=== PATIENT | male | born 2000 | race Caucasian/White ===

== ENCOUNTER 2020-01-23 16:01 | Emergency (ER) | payer SELFPAY ==
[2020-01-23 16:12] VITALS: BP 136/73; PULSE 83; RESP 18; TEMP 36.9; O2SAT 99; BMI 23.7
--- NOTE | 2020-01-23 16:22 | DI.RAD.S_ITS ---
PROCEDURE: XR CHEST 1V INDICATIONS: SHORTNESS OF BREATH. TECHNIQUE: One view of the chest was acquired. COMPARISON: None. FINDINGS: Surgical changes and devices: None. Lungs and pleura: Lungs are clear. No pleural effusions or pneumothorax. Mediastinum: Mediastinal contours appear normal. Heart size is normal. Bones and chest wall: No suspicious bony lesions. Overlying soft tissues appear unremarkable. IMPRESSION: No evidence acute pulmonary process. Dictated by: Nestor Darnell M.D. on 01/23/2020 at 17:15 Approved by: Nestor Darnell M.D. on 01/23/2020 at 17:15
--- NOTE | 2020-01-23 16:27 | ED_ITS ---
HPI - General Adult General Chief complaint: Upper Respiratory Symptoms Stated complaint: Coughing up blood, mucus, chest pain, SOB Time Seen by Provider: 01/23/20 16:21 Source: patient Mode of arrival: Ambulatory Limitations: no limitations History of Present Illness HPI narrative: 20-year-old male here for evaluation of wheezing and coughing and blood-streaked sputum. Patient states this has been going off and on for some time now. Do states that it mostly occurs when he goes to his parent's house for they have a cat. He is unsure if he is allergic to the cat. He states that he was diagnosed with pneumonia as a child but not currently on any treatment for this. He was using his girlfriend's albuterol inhaler. No fevers. No chest pain. Related Data Previous Rx's Medication Instructions Recorded albuterol sulfate 2 puff INHALATION Q4-6H PRN #18 01/23/20 gram Allergies Allergy/AdvReac Type Severity Reaction Status Date / Time No Known Drug Allergies Allergy Verified 01/23/20 16:12 Review of Systems Constitutional Constitutional: Denies fever(s) and Denies headache(s) ENT Ears, Nose, Mouth, and Throat: Denies headache(s) Cardiovascular Cardiovascular: Denies chest pain Respiratory Respiratory: Reports cough Comments: Blood tinged sputum with cough Gastrointestinal Gastrointestinal: Denies abdominal pain, Denies nausea and Denies vomiting Integumentary/Breasts Skin/Breast: Denies rash Neurologic Neurologic: Denies headache(s) Hematologic/Lymphatic Hematologic/Lymphatic: Denies easy bleeding and Denies easy bruising Patient History Medical History Asthma (Acute) Social History Smoking Status: Never smoker Smoking Status: Never smoker Substance Use Type: does not use Exam Initial Vital Signs Initial Vital Signs: Vital Signs Temperature 98.5 F 01/23/20 16:12 Pulse Rate 83 01/23/20 16:12 Respiratory Rate 18 01/23/20 16:12 Blood Pressure 136/73 01/23/20 16:12 Pulse Oximetry 99 01/23/20 16:12 Const General: cooperative, comfortable and well developed Limitations: mental status not altered HENIN Head: normal to inspection and normocephalic Resp Effort & Inspection: normal respiratory effort and not tachypneic Auscultation: wheezes (Right lower) Cardio Rate: regular rate Rhythm: regular rhythm Skin Lesions: no lesions Rashes: no rashes Neuro General: alert, awake and oriented x3 Cognition: normal cognition Speech: speech normal Extrem General: normal to inspection and capillary refill normal Psych Appearance: grossly normal and well kempt Course Orders Ordered: ED Orders 01/23/20 16:22 XR chest 1V Stat Discontinued Medications Albuterol (Ventolin) 2.5 mg INH NOW ONE Stop: 01/23/20 16:34 Last Admin: 01/23/20 16:53 Dose: 2.5 mg Documented by: DEAN Vital Signs Vital signs: Vital Signs - 8 hr 01/23/20 16:12 01/23/20 16:54 Temperature 98.5 F Pulse Rate 83 93 H Respiratory Rate 18 16 Blood Pressure 136/73 Pulse Oximetry 99 99 Medical Decision Making Imaging Data Chest x-ray: Radiologist's Impression: [address] [address] XRay Report Signed Patient: Robbin Matthews TMR#: [id number] : 2000Acct:[id number] Age/Sex: 20 / MDate of Service: 01/23/20 Loc: ED Accession Number: [id number] Procedure: XR chest 1V Ordering Provider: Paul Barr D.O. PROCEDURE: XR CHEST 1V INDICATIONS: SHORTNESS OF BREATH. TECHNIQUE: One view of the chest was acquired. COMPARISON: None. FINDINGS: Surgical changes and devices: None. Lungs and pleura: Lungs are clear. No pleural effusions or pneumothorax. Mediastinum: Mediastinal contours appear normal. Heart size is normal. Bones and chest wall: No suspicious bony lesions. Overlying soft tissues appear unremarkable. IMPRESSION: No evidence acute pulmonary process. Dictated by: Nestor Darnell M.D. on 01/23/2020 at 17:15 Approved by: Nestor Darnell M.D. on 01/23/2020 at 17:15 [facility] Narrative Medical decision making narrative: Afebrile, did have some right lower lobe wheezing which resolved with an albuterol nebulizer. Chest x-ray is unremarkable. No need for antibiotics. I do suspect the blood-tinged sputum was secondary to the coughing that he is having and irritation related to this. We did discuss the use of antihistamines to include Claritin or Olamide or Zyrtec that he can buy [id number]. He was given return precautions and follow-up instructions. He was also given phone number that he can contact for a primary provider. He expressed understanding and agreement plan. Discharge Plan Departure Patient Disposition: Home Clinical Impression: Wheezing Discharge Date/Time: 01/23/20 17:37 Instructions: DI for Reactive Airway Disease-Adult Activity Restrictions/Additional Instructions: I do recommend that you use the albuterol inhaler as directed. Also recommend that you try to use an [id number] antihistamine such as Claritin or Olamide or Zyrtec like we discussed. Contact the number your provided to establish a primary provider. Return to emergency department for any new or worsening symptoms Prescriptions: New albuterol sulfate 90 mcg/actuation HFA aerosol inhaler 2 puff INHALATION Q4-6H PRN (Reason: shortness of breath or wheezing) Qty: 18 RF: 0 Stand Alone Forms: Work Release Note
[2020-01-23] MEDS: ALBUTEROL 2.5 MG/3 ML NEB (ADULT) INH (16:53)
[2020-01-23 16:54] VITALS: PULSE 93; RESP 16; O2SAT 99
== END 2020-01-23 17:37 | disposition home or self-care (01) ==
PROVIDERS: Emergency Provider Emergency Medicine
DX: R06.2 Wheezing (principal); R05 Cough
CPT/HCPCS: 71045; 94640; 99283; J7613

== ENCOUNTER 2020-01-30 18:06 | Emergency (ER) | payer SELFPAY ==
[2020-01-30 18:10] VITALS: BP 121/72; PULSE 71; RESP 18; TEMP 37.1; O2SAT 100
--- NOTE | 2020-01-30 19:52 | ED_ITS ---
HPI - Abdominal Pain <NAV HiP - Last Filed: 01/30/20 21:14> General Chief Complaint: Abdominal Pain Stated Complaint: THROWING UP STOMACH PAIN ON FIRE Time Seen by Provider: 01/30/20 19:22 Source: patient Mode of arrival: Ambulatory Limitations: no limitations History of Present Illness HPI narrative: This is a 20-year-old male who presents to ED with chief complain of acid reflux feeling. Patient reports he has occasional GERD symptoms and reports nonradiating burning epigastric discomfort. Patient states he had coffee and vitamin on empty stomach this morning. He also had nausea and vomited about 8-10 times today. Patient denies blood in his emesis or diarrhea or blood in his stool. Patient describes his discomfort as stomach on fire. Patient has not eaten today and feels hungry. Patient denies ETOH intakes or routine medication uses besides [employer]. Last emesis around 1700. Related Data Previous Rx's Medication Instructions Recorded albuterol sulfate 2 puff INHALATION Q4-6H PRN #18 01/23/20 gram ondansetron 4 mg PO BID-TID PRN #10 tab 01/30/20 pantoprazole [Protonix] 20 mg PO DAILY #14 tab 01/30/20 Allergies Allergy/AdvReac Type Severity Reaction Status Date / Time No Known Drug Allergies Allergy Verified 01/23/20 16:12 Review of Systems <Artur SteveNAV GilP - Last Filed: 01/30/20 21:14> Review of Systems Narrative: General: Denies fever, chills, fatigue, malaise, sweats. HEENT: Denies sinus pain, ear pain, sore throat, difficulty swallowing, dizziness. Respiratory: Denies dyspnea, cough, wheezing, hemoptysis, sputum. Cardiovascular: Denies chest pain, palpitations, orthopnea, edema. Gastrointestinal: See HPI : Denies dysuria, frequency, incontinence, hematuria, urinary retention. Musculoskeletal: Denies weakness, joint pain or bony pain. Skin: Denies rash, skin lesions, or other. Neurologic: Denies weakness, headache, numbness, change in speech, confusion, seizures, incoordination. Psychiatric: No concerning psychosocial issues. 12-point review of systems is negative except for those stated above. Patient History <NAV HiP - Last Filed: 01/30/20 21:14> Social History (Updated 01/30/20 @ 19:56 by LAURA Hi) Smoking Status: Never smoker Smokeless tobacco user: chewing tobacco Smoking Status: Never smoker Substance Use Type: does not use Exam <LAURA Hi - Last Filed: 01/30/20 21:14> Narrative Exam Narrative: General appearance: well developed, well nourished, in no acute distress. Head: normocephalic, atraumatic, no scalp lesions, non-tender. ENT: Hearing grossly intact. Nose without bleeding, purulent discharge. Facial sinuses nontender to palpate. Mucous membrane moist, no mucosal lesion. Throat without erythema, tonsillar hypertrophy or exudate. Uvula in midline, airway patent. Neck/Thyroid: neck supple, full range of motion, no visible masses or meningeal signs. No JVD, non-tender without lymphadenopathy. Skin: no suspicious rashes, lesions over visible areas. Warm and dry and a ppropriate color for ethnicity. Heart: no clubbing, no cyanosis, no edema. S1 and S2 normal. RRR w/o murmurs, clicks, or bruits. Lungs: Breathing even and unlabored. No stridor. No accessory muscles used. Able to speak in full sentences. Chest: normal shape and expansion. Abdomen: non-obese, non-distended, mild discomfort in epigastric region without rebound tenderness in right lower quadrant or left lower quadrant. Negative Young's sign. Neurologic: alert and oriented. Cognitive exam, PAPIER MACHE' MOLDER and PNS grossly intact on informal exam. Psych: good eye contact, normal affect. Initial Vital Signs Initial Vital Signs: Vital Signs Temperature 98.8 F 01/30/20 18:10 Pulse Rate 71 01/30/20 18:10 Respiratory Rate 18 01/30/20 18:10 Blood Pressure 121/72 01/30/20 18:10 Pulse Oximetry 100 01/30/20 18:10 <Chandni Galvan DO - Last Filed: 01/31/20 01:52> Initial Vital Signs Initial Vital Signs: Vital Signs Temperature 98.8 F 01/30/20 18:10 Pulse Rate 71 01/30/20 18:10 Respiratory Rate 18 01/30/20 18:10 Blood Pressure 121/72 01/30/20 18:10 Pulse Oximetry 100 01/30/20 18:10 Scores <Artur LbNAV griffinP - Last Filed: 01/30/20 21:14> GCS Paul coma scale eye opening: Spontaneous [place] coma scale verbal response: Orientated Paul coma scale motor response: Obey commands Paul coma scale total score: 15 Course <[facility] JustinoLAURA - Last Filed: 01/30/20 21:14> Orders Ordered: Discontinued Medications Al Hydrox/Mg Hydrox/Simethicone 20 ml/ Lidocaine HCl 15 ml 0 ml PO NOW ONE Stop: 01/30/20 19:42 Last Admin: 01/30/20 20:04 Dose: 30 ml Documented by: MARIE Ondansetron HCl (Zofran Odt) 4 mg SL NOW ONE Stop: 01/30/20 19:42 Last Admin: 01/30/20 20:04 Dose: 4 mg Documented by: MARIE Pantoprazole Sodium (Protonix) 20 mg PO NOW ONE Stop: 01/30/20 19:42 Last Admin: 01/30/20 20:04 Dose: 20 mg Documented by: MARIE Vital Signs Vital signs: Vital Signs - 8 hr 01/30/20 18:10 01/30/20 20:12 Temperature 98.8 F Pulse Rate 71 73 Respiratory Rate 18 18 Blood Pressure 121/72 Blood Pressure [Left Arm] 115/72 Pulse Oximetry 100 100 <Chandni Galvan DO - Last Filed: 01/31/20 01:52> Orders Ordered: Discontinued Medications Al Hydrox/Mg Hydrox/Simethicone 20 ml/ Lidocaine HCl 15 ml 0 ml PO NOW ONE Stop: 01/30/20 19:42 Last Admin: 01/30/20 20:04 Dose: 30 ml Documented by: MARIE Ondansetron HCl (Zofran Odt) 4 mg SL NOW ONE Stop: 01/30/20 19:42 Last Admin: 01/30/20 20:04 Dose: 4 mg Documented by: MARIE Pantoprazole Sodium (Protonix) 20 mg PO NOW ONE Stop: 01/30/20 19:42 Last Admin: 01/30/20 20:04 Dose: 20 mg Documented by: MARIE Vital Signs Vital signs: Vital Signs - 8 hr 01/30/20 18:10 01/30/20 20:12 Temperature 98.8 F Pulse Rate 71 73 Respiratory Rate 18 18 Blood Pressure 121/72 Blood Pressure [Left Arm] 115/72 Pulse Oximetry 100 100 [facility] - Abdominal Pain <LAURA Hi - Last Filed: 01/30/20 21:14> Differential Diagnosis Differential diagnosis: Likely abdominal pain, gastroenteritis and other (Cholecystitis, pancreatitis, GERD) Medical Records Attestation: I reviewed the patient's medical records. [facility] Narrative Medical decision making narrative: This is 20 year old male who presents to ED with nonradiating epigastric discomfort, burning pain with nausea and vomiting today after drinking coffee and had vitamin in empty stomach. Patient denies blood in emesis or stools. Patient denies fever, chills. Patient declined blood test or IV insertion stating afraid of needles. He is willing to try medications for his symptoms and requesting work off note. Patient is afebrile with stable vital signs. Patient was medicated with Zofran, GI cocktail and oral Protonix which improved his discomfort. He was able to tolerate during and sandwich before discharged to home. Patient discharged to home with Zofran and Protonix for 2 week duration. Advised the patient to avoid trigger foods/drinks. [facility] phone number has been provided for patient to select PCP. Patient informed that if patient recurs with the medication, probably blood and imaging tests are warrant. Return precautions were discussed with patient and patient verbalized the understanding and in agreement with treatment plan. Discharge Plan Departure Patient Disposition: Home Clinical Impression: Gastroesophageal reflux disease Qualifiers: Esophagitis presence: esophagitis presence not specified Qualified Code(s): K21.9 - Gastro-esophageal reflux disease without esophagitis Discharge Date/Time: 01/30/20 21:06 Instructions: DI for Gastroesophageal Reflux Disease (GERD) Activity Restrictions/Additional Instructions: You have been diagnosed with [epigastric pain likely from gastroesophageal reflux disease. You were medicated with Zofran for nausea and Protonix while in ED. You felt improved after these medications. You were able to tolerate sandwich and drink without nausea and vomiting.]. What to do: *Take your medications as directed. Zofran as needed for nausea and vomiting. After 15-30 minutes taking this medication, you can hydrate herself with small sips frequently. Take Protonix 30 minutes before a meal once a day for next 2 weeks. Please avoid triggering foods and drinks including fatty, spicy, acidic, alcohol, nicotine, mint, chocolate. *Follow up with your primary care provider in 2-3 days, call for an appointment. Let them know you were seen in the ED and that we asked you to be seen in follow up. *Return to ED if you have any new, worsening, or concerning symptoms, such as [chest pain, breathing difficulty, unable to tolerate fluids, vomiting blood or bloody diarrhea, fever or any acute concerns. You may need further testing with blood and imaging if symptoms recurring even after the medications.]. Prescriptions: New pantoprazole [Protonix] 20 mg tablet,delayed release (DR/EC) 20 mg PO DAILY Qty: 14 RF: 0 ondansetron 4 mg tablet,disintegrating 4 mg PO BID-TID PRN (Reason: nausea and vomiting) Qty: 10 RF: 0 No Action albuterol sulfate 90 mcg/actuation HFA aerosol inhaler 2 puff INHALATION Q4-6H PRN (Reason: shortness of breath or wheezing) Qty: 18 RF: 0 Referrals: Merged With [facility] [Outside] Stand Alone Forms: Work Release Note
[2020-01-30] MEDS: ONDANSETRON 4 MG ODT SL (20:04)
[2020-01-30] MEDS: MAG HYDROX/ALUMINUM/SIMETH SUS 20 ML, LIDOCAINE VISCOUS 2% 15 ML PO (20:04)
[2020-01-30] MEDS: PANTOPRAZOLE 20 MG TABLET PO (20:04)
[2020-01-30 20:12] VITALS: BP 115/72; PULSE 73; RESP 18; O2SAT 100
== END 2020-01-30 21:06 | disposition home or self-care (01) ==
PROVIDERS: Emergency Provider Nurse Practitioner Family
DX: K21.9 Gastro-esophageal reflux disease without esophagitis (principal)
CPT/HCPCS: 99283

== ENCOUNTER → 2020-06-20 15:56 | Outpatient (ROUT) | payer OTHER, SELFPAY ==
[2020-06-22 08:30] LABS: COVID19 Sendout Not Detected (Not Detect)
== END ==
PROVIDERS: Visit Provider Family Medicine
DX: Z11.59 Encounter for screening for other viral diseases (principal)
CPT/HCPCS: 87635

== ENCOUNTER 2020-08-20 19:02 | Emergency (ER) | payer SELFPAY ==
[2020-08-20 19:41] VITALS: BP 124/67; PULSE 77; RESP 18; TEMP 36.7; O2SAT 98
[2020-08-20] MEDS: FLUORESCEIN 1 MG STRIP EYE-BOTH (20:59)
[2020-08-20] MEDS: PROPARACAINE 0.5% OPHTH SOL 1 DROPS EYE-LEFT (20:59)
--- NOTE | 2020-08-20 21:16 | ED.GENADULT ---
HPI - General Adult General Chief complaint: Eye Problems Stated complaint: Need To Get Something Out Of My Left Eye Time Seen by Provider: 08/20/20 19:08 Source: patient Mode of arrival: Ambulatory Limitations: no limitations History of Present Illness HPI narrative: 20-year-old male here for evaluation of what he thinks his a foreign body in his left eye. Patient states that he was at work. He was using a scissors grinder. He was wearing eye protection. He states that he stopped using a scissors grinder when he lifted up his eye protection he felt like something went into his left eye. He did wash his eye quite a bit after the event. He does not were glasses or contacts. Has never had surgery on his eyes in the past. Related Data Previous Rx's Medication Instructions Recorded albuterol sulfate 2 puff INHALATION Q4-6H PRN #18 01/23/20 gram ondansetron 4 mg PO BID-TID PRN #10 tab 01/30/20 pantoprazole [Protonix] 20 mg PO DAILY #14 tab 01/30/20 erythromycin 0.5 inch EYE-LEFT TID 3 Days #3.5 08/20/20 gram Allergies Allergy/AdvReac Type Severity Reaction Status Date / Time No Known Drug Allergies Allergy Verified 08/20/20 19:43 Review of Systems Constitutional Constitutional: Denies fever(s) and Denies headache(s) Eyes Eyes: Reports irritation and Reports eye pain Comments: Foreign body sensation left eye ENT Ears, Nose, Mouth, and Throat: Denies headache(s) Integumentary/Breasts Skin/Breast: Denies lesions and Denies rash Neurologic Neurologic: Denies behavioral changes and Denies headache(s) Psychiatric Psychiatric: Denies behavioral changes Allergic/Immunologic Allergic/Immunologic: Denies urticaria Patient History Medical History (Updated 08/20/20 @ 21:18 by Paul Barr DO) Asthma (Acute) Social History Smoking Status: Current every day smoker Smokeless tobacco user: chewing tobacco Smoking Status: Current every day smoker Substance Use Type: does not use Exam Initial Vital Signs Initial Vital Signs: Vital Signs Temperature 98.1 F 08/20/20 19:41 Pulse Rate 77 08/20/20 19:41 Respiratory Rate 18 08/20/20 19:41 Blood Pressure 124/67 08/20/20 19:41 Pulse Oximetry 98 08/20/20 19:41 Const General: cooperative, healthy appearing and comfortable [facility] Head: normal to inspection and normocephalic Eyes General: appearance normal, both eyes and all related structures Alignment and Position: alignment normal Periorbital: periorbital findings normal Eyelids: eyelids normal and no eyelid abnormalities Conjunctivae: conjunctivae normal Sclera: sclerae normal Cornea: corneas abnormal (Small uptake 3 o'clock position left cornea) and fluorescein used Pupils: PERRL EOM: EOM intact bilaterally Skin Lesions: no lesions Rashes: no rashes Extrem General: normal to inspection and capillary refill normal Psych Appearance: grossly normal and well kempt Course Orders Ordered: Discontinued Medications Erythromycin (Erythromycin Ophth Oint) 1 applic EYE-LEFT NOW ONE Stop: 08/20/20 21:17 Last Admin: 08/20/20 21:25 Dose: 1 applic Documented by: MANISHA Fluorescein Sodium (Ful-Shavonne) 1 mg EYE-BOTH NOW ONE Stop: 08/20/20 20:49 Last Admin: 08/20/20 20:59 Dose: 1 mg Documented by: DAMARIS Proparacaine HCl (Parcaine 0.5% Ophth [place]) 1 drops EYE-LEFT NOW ONE Stop: 08/20/20 20:49 Last Admin: 08/20/20 20:59 Dose: 1 drop Documented by: DAMARIS Vital Signs Vital signs: Vital Signs - 8 hr 08/20/20 19:41 Temperature 98.1 F Pulse Rate 77 Respiratory Rate 18 Blood Pressure 124/67 Pulse Oximetry 98 Medical Decision Making [facility] Narrative Medical decision making narrative: No foreign body was seen with direct visualization with both the Wood's lamp and the slit lamp. I also inverted and rebecca the upper and lower eyelids. There was no foreign body seen. On the slit-lamp there was a small amount of uptake of the fluorescein stain at the 3 o'clock position outside the visual axis. Will place the patient on erythromycin ointment. He was given a small dose of it here in the ER and was sent home with prescription for this. He was instructed that he need to take the erythromycin as it would help with preventing worsening issues such as ulcerations and potential vision threatening issues. He was given return precautions and follow-up instructions. He expressed understanding and agreement. Discharge Plan Departure Patient Disposition: Home Clinical Impression: Corneal abrasion Qualifiers: Encounter type: initial encounter Laterality: left Qualified Code(s): S05.02XA - Injury of conjunctiva and corneal abrasion without foreign body, left eye, initial encounter Discharge Date/Time: 08/20/20 21:28 Instructions: Erythromycin Ophthalmic Activity Restrictions/Additional Instructions: Recommend that you fill the prescription and start taking it as directed. Contact your primary provider for follow-up. Return to the emergency department for any new or worsening symptoms Prescriptions: New erythromycin 5 mg/gram (0.5 %) ointment 0.5 inch EYE-LEFT TID 3 Days Qty: 3.5 RF: 0 No Action albuterol sulfate 90 mcg/actuation HFA aerosol inhaler 2 puff INHALATION Q4-6H PRN (Reason: shortness of breath or wheezing) Qty: 18 RF: 0 pantoprazole [Protonix] 20 mg tablet,delayed release (DR/EC) 20 mg PO DAILY Qty: 14 RF: 0 ondansetron 4 mg tablet,disintegrating 4 mg PO BID-TID PRN (Reason: nausea and vomiting) Qty: 10 RF: 0
[2020-08-20] MEDS: ERYTHROMYCIN OPHTH 1 GM OINT 1 APPLIC EYE-LEFT (21:25)
== END 2020-08-20 21:28 | disposition home or self-care (01) ==
PROVIDERS: Emergency Provider Emergency Medicine
DX: S05.02XA Injury of conjunctiva and corneal abrasion without foreign body, left eye, initial encounter (principal); W31.1XXA Contact with metalworking machines, initial encounter; Y99.0 Civilian activity done for income or pay
CPT/HCPCS: 99282; 99283

== ENCOUNTER 2022-12-05 20:56 | Emergency (ER) | payer OTHER, SELFPAY ==
[2022-12-05 21:04] VITALS: BP 136/68; PULSE 86; RESP 18; TEMP 36.6; O2SAT 98; BMI 25.1
--- NOTE | 2022-12-06 00:23 | PC.NURSE ---
Patient declined tetanus vaccine.
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
[2022-12-06] MEDS: BACITRACIN OINT 0.9 GM PCKT 1 APPLIC TOP (01:56)
[2022-12-06 02:10] VITALS: BP 122/68; PULSE 72; RESP 16; TEMP 36.2; O2SAT 99
[2022-12-06] MEDS: TET,DIPH,PERTUSS(ACELL),VAC/PF 0.5 ML SYRINGE IM (02:30)
== END 2022-12-06 02:34 | disposition home or self-care (01) ==
PROVIDERS: Emergency Provider Emergency Medicine
DX: T21.26XA Burn of second degree of male genital region, initial encounter (principal); T31.0 Burns involving less than 10% of body surface; X08.8XXA Exposure to other specified smoke, fire and flames, initial encounter; Y93.89 Activity, other specified; Z23 Encounter for immunization; Y99.0 Civilian activity done for income or pay
CPT/HCPCS: 90471; 99283; 90715

== ENCOUNTER 2022-12-06 14:55 | Emergency (ER) | payer OTHER, SELFPAY ==
[2022-12-06 15:05] VITALS: BP 118/60; PULSE 73; RESP 16; TEMP 36.4; O2SAT 98; BMI 26.5
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
--- NOTE | 2022-12-06 16:25 | PC.NURSE ---
Small open wound on right knuckle with red streaking up hand. Ointment applied and dressed with non adhering dressing with elidia wrap over it.
[2022-12-06] MEDS: MUPIROCIN 22 GM OINT 1 APPLIC TOP (16:26)
== END 2022-12-06 16:27 | disposition home or self-care (01) ==
PROVIDERS: Emergency Provider Physician Assistant Medical
DX: S61.401A Unspecified open wound of right hand, initial encounter (principal); L08.89 Other specified local infections of the skin and subcutaneous tissue; X58.XXXA Exposure to other specified factors, initial encounter
CPT/HCPCS: 99282